=== PATIENT | female | born 2000 | race Caucasian/White ===

== ENCOUNTER 2020-01-15 17:41 | Emergency (ER) | payer OTHER, SELFPAY ==
[2020-01-15 17:54] VITALS: BP 113/65; PULSE 91; RESP 20; TEMP 37.5; O2SAT 100
--- NOTE | 2020-01-15 18:06 | ED.EYEPROB ---
HPI - Eye Problem General Chief complaint: Eye Problems Stated complaint: FB in r/eye Time Seen by Provider: 01/15/20 17:54 Source: patient and RN notes reviewed Mode of arrival: ambulatory Limitations: no limitations History of Present Illness HPI Narrative: Patient presents today complaining of a foreign body sensation to her right eyes since last night. States she was washing her face with a cleanser with beads in it and believes this may be what is in her eye. Mother flushed her eye with copious water last night without relief. Denies vision changes or photophobia. Denies drainage. Reports foreign body sensation to the inner canthus. MD chief complaint: eye pain, eye redness and foreign body Related Data Home Medications Medication Instructions Recorded Confirmed levonorgestrel-ethinyl estrad 1 tablet PO DAILY 01/15/20 01/15/20 [Ebonie (28)] Allergies Allergy/AdvReac Type Severity Reaction Status Date / Time No Known Allergies Allergy Verified 01/15/20 17:56 Review of Systems Review of Systems: Narrative: CONSTITUTIONAL: Denies body aches, fever, chills, or sweats. EYES: Denies visual changes, or discharge.+ Foreign body sensation and redness to the right eye ENT: Denies rhinorrhea, congestion, sore throat, or otalgia. CARDIOVASCULAR: Denies chest pain, palpitations, or edema. RESPIRATORY: Denies cough or dyspnea. GASTROINTESTINAL: Denies abdominal pain, nausea, vomiting, or diarrhea. GENITOURINARY: Denies dysuria or hematuria. SKIN: Denies rash, itching, or wounds. MUSCULOSKELETAL: Denies back pain, joint pain, or myalgia. NEUROLOGIC: Denies headache, numbness, tingling, or weakness. PSYCH: Denies depression or anxiety. PMFSH Comments At time of signature, I have reviewed and agree with nursing past medical, surgical, social and family history unless otherwise noted. Please see nursing chart for further information. There is no relevant family history pertinent to the presenting complaint Exam Narrative: Exam Narrative: GENERAL: Well-appearing, well-nourished, and in no acute distress. HEAD: Normocephalic, atraumatic. EYES: EOMI. PERRLA. Left eye normal. Right eye: Injected conjunctiva. No foreign bodies found. Fluorescein uptake to the 2 o'clock position of the iris, indicating corneal abrasion. Lids and lashes normal bilaterally. ENT: Mucous membranes pink and moist. NECK: Normal AROM. CHEST: No respiratory distress. EXTREMITIES: Normal range of motion. No edema. SKIN: Warm, dry, no rash. NEURO: No focal deficits. Alert and oriented x3. Gait steady. PSYCH: Normal affect. No signs of depression or anxiety. Course Vital Signs Vital signs: Vital Signs Temperature 99.5 F 01/15/20 17:54 Pulse Rate 91 01/15/20 17:54 Respiratory Rate 20 01/15/20 17:54 Blood Pressure 113/65 01/15/20 17:54 Pulse Oximetry 100 01/15/20 17:54 Temperature 99.5 F 01/15/20 17:54 Pulse Rate 91 01/15/20 17:54 Respiratory Rate 20 01/15/20 17:54 Blood Pressure 113/65 01/15/20 17:54 Pulse Oximetry 100 01/15/20 17:54 Reviewed Procedures Other Procedure Procedure 1: Other Procedure: Right eye was anesthetized with 1 drop of tetracaine and anesthesia was achieved. The eye was flushed with eye wash. Lid was inverted and examined. Moistened Qtip was used to sweep underneath the upper eyelid twice with 0 foreign bodies resulting. Cornea was dyed with fluorescein and 1 abrasion was noted at 2 oclock position of the iris. Pt tolerated procedure well. MDM - Eye Problem Differential Diagnosis Differential diagnosis: Likely corneal abrasion, conjunctivitis and other (Foreign body) Critical Care Time Critical Care Time Critical Care Time: No Discharge Plan Discharge Clinical Impression: Abrasion of cornea, right Qualifiers: Encounter type: initial encounter Qualified Code(s): S05.01XA - Injury of conjunctiva and corneal abrasion without foreign body, right eye, ini
== END 2020-01-15 18:12 | disposition home or self-care (01) ==
PROVIDERS: Emergency Provider Nurse Practitioner; PCP Physician Assistant
DX: S05.01XA Injury of conjunctiva and corneal abrasion without foreign body, right eye, initial encounter (principal); X58.XXXA Exposure to other specified factors, initial encounter
CPT/HCPCS: 99213; A9270; G0463

== ENCOUNTER 2022-01-17 13:13 | Emergency (ER) | payer OTHER, SELFPAY ==
[2022-01-17 13:30] VITALS: BP 112/73; PULSE 107; RESP 16; TEMP 37.4; O2SAT 100
--- NOTE | 2022-01-17 13:42 | ED.URI ---
HPI - URI/Sore Throat General Chief Complaint: Upper Respiratory Infection Stated Complaint: cold symptoms Time Seen by Provider: 01/17/22 13:42 Source: patient and RN notes reviewed Mode of arrival: ambulatory Limitations: no limitations History of Present Illness HPI Narrative: 22y/o female presented for c/o sinus congestion, fever, body aches x2 days. Endorses occasional dizziness and one episode of vomiting phlegm today. Denies cough, sob, wheezing. Denies sick contacts. She is not vaccinated for covid/flu. She had covid 10/2021. MD elicited complaint: cough Related Data Home Medications Medication Instructions Recorded Confirmed albuterol 1 mcg INHALATION DIRECTED 01/17/22 01/17/22 fluoxetine [Prozac] 20 mg PO DAILY 01/17/22 01/17/22 levonorgestrel-ethinyl estrad 1 tablet PO DAILY 01/17/22 01/17/22 [Ebonie (28)] Allergies Allergy/AdvReac Type Severity Reaction Status Date / Time No Known Allergies Allergy Verified 01/17/22 13:39 Review of Systems Review of Systems: CONSTITUTIONAL: Endorses malaise, chills, sweats, fever EYES: Denies visual changes, redness, or discharge ENT: Reports rhinorrhea, congestion, sinus pain, otalgia, sore throat CARDIOVASCULAR: Denies chest pain, palpitations, edema RESPIRATORY: Denies dyspnea cough, post nasal drainage. GASTROINTESTINAL: Denies abdominal pain, nausea, vomiting, diarrhea SKIN: Denies rash or itching MUSCULOSKELETAL: Endorses myalgia NEUROLOGIC: Denies headache Exam Narrative: GENERAL: Ill-appearing, nontoxic HEAD: Normocephalic EYES: PERRLA, conjunctivae clear ENT: Mucous membranes moist. TM pearly taylor with dull light reflex bilaterally; no tragal tenderness. Oropharynx erythematous without lesions or exudate, no drooling, no hoarseness, no trismus, uvula midline. NECK: Supple. No lymphadenopathy CHEST: Clear to auscultation, breath sounds equal. No wheezing, rhonchi, rales, or stridor. No respiratory distress, speaks in full sentences. HEART: Regular rate and rhythm. No murmur heard. SKIN: Warm, dry, no rash. NEURO: Alert and oriented x3. PSYCH: Normal mood and affect Course Course Emergency Course: Patient is aware of diagnosis, understands and agrees to treatment plan. Anticipatory guidance given. Patient agrees to follow-up as directed and is aware of reasons to seek care at the emergency department. Portions of this record may have been created with voice recognition software Level of Care: Express Care Visit Vital Signs Vital signs: Vital Signs Temperature 99.3 F 01/17/22 13:30 Pulse Rate 107 H 01/17/22 13:30 Respiratory Rate 16 01/17/22 13:30 Blood Pressure 112/73 01/17/22 13:30 Pulse Oximetry 100 01/17/22 13:30 Temperature 99.3 F 01/17/22 13:30 Pulse Rate 107 H 01/17/22 13:30 Respiratory Rate 16 01/17/22 13:30 Blood Pressure 112/73 01/17/22 13:30 Pulse Oximetry 100 01/17/22 13:30 reviewed MDM - URI/Sore Throat MDM Narrative Medical decision making narrative: flu A positive Pt declines Tamiflu. She is appropriate for outpt treatment and f/u. Differential Diagnosis Differential diagnosis: Likely upper respiratory infection, sinusitis, viral infection, influenza and pharyngitis Lab Data Attestation: I reviewed the patient's lab results. Discharge Plan Discharge Clinical Impression: Influenza Patient Disposition: Home, Self-Care Condition: Stable Instructions: Antibiotic Form, Influenza (ED) Additional Instructions: Recommend Flonase spray and Zyrtec (or Claritin/Danyelle) for sinus congestion over the counter Cough syrup may cause drowsiness; avoid driving or take it at night time. Tylenol 1000mg every 8 hours as needed for pain/fever Symptomatic treatment includes: rest, fluids, and increase humidity of the air at home. Follow up with your primary care provider as needed in 1-2 weeks Go to the ER for worsening symptoms or concerns Prescriptions: No Action levonorgestrel-
== END 2022-01-17 13:52 | disposition home or self-care (01) ==
PROVIDERS: Emergency Provider Nurse Practitioner Family; PCP Physician Assistant
DX: J10.1 Influenza due to other identified influenza virus with other respiratory manifestations (principal)
CPT/HCPCS: 87804; 99213; G0463

== ENCOUNTER 2022-02-25 19:37 | Emergency (ER) | payer OTHER, SELFPAY ==
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
[2022-02-25 19:52] VITALS: BP 112/64; PULSE 97; RESP 18; TEMP 37.4; O2SAT 100
== END 2022-02-25 20:10 | disposition home or self-care (01) ==
PROVIDERS: Emergency Provider Nurse Practitioner; PCP Physician Assistant
DX: S93.601A Unspecified sprain of right foot, initial encounter (principal); V86.99XA Unspecified occupant of other special all-terrain or other off-road motor vehicle injured in nontraffic accident, initial encounter
CPT/HCPCS: 73630; 99213; G0463

== ENCOUNTER 2023-11-21 08:55 | Day surgery (SDC) | payer OTHER, SELFPAY ==
[2023-11-14 11:15] VITALS: BMI 20.5
[2023-11-14 14:09] VITALS: BMI 20.7
[2023-11-21 10:42] VITALS: BP 107/77; PULSE 110; RESP 16; TEMP 36.6; O2SAT 100; BMI 19.8
[2023-11-21] MEDS: LACTATED RINGERS 1,000 ML 150 ML IV CONT (10:57)
--- NOTE | 2023-11-21 10:58 | P.PNAN_ITS ---
Anes - Initial Pre Proc Eval Procedure: Operation Date: 11/21/23 12:00 Proposed Procedures p Esophagogastroduodenoscopy - Dinh Toure MD Date/Time: 11/21/23 10:58 Surgeon: Dinh Toure MD Pre Op Diagnosis: Gerd without esophagitis Patient Data Age: 23 Gender: F Height: 1.6 m Weight: 50.7 kg Last Vital Signs Temp 36.6 C 11/21/23 10:42 Pulse 110 H 11/21/23 10:42 Resp 16 11/21/23 10:42 BP 107/77 11/21/23 10:42 Pulse Ox 100 11/21/23 10:42 O2 Del Method Room Air 11/21/23 10:42 Allergies Allergy/AdvReac Type Severity Reaction Status Date / Time No Known Allergies Allergy Verified 11/21/23 10:39 Home Medications Medication Instructions Recorded Confirmed Type omeprazole 20 mg capsule,delayed 20 mg PO DAILY 30 days #30 caps 09/11/23 11/21/23 Rx release Patient hx anesthesia problems: none Family hx anesthesia problems: none Results Review: All pre-operative results and documents have been reviewed as part of the pre- operative evaluation. [facility] Past Medical History Medical History Depression History of nephrolithiasis X2 Surgical History Surgical History History of myringotomy History of tonsillectomy Family History Family History Father Diabetes mellitus Mother No problems noted. Grandparent Hypertension Diabetes mellitus Skin cancer Alcoholism Brain tumor Social History Social History Smoking status: Never smoker Alcohol intake: current Alcohol use details: socially Substance use: never Substance use type: does not use Lack of Transportation: No Lack of Food: Never True Current Housing: I Have Housing Concerned About Future Housing: No Difficulty Paying Gas/Electric Bills: No Difficulty Paying for Meds: No Currently Unemployed: No Education: High School Diploma/GED Difficulty w/ Childcare or Family Care: No Living arrangements: with family Occupation/Education: occupation Gender identity (if verbalized by the patient): Female Sexual Orientation (if Verbalized by the Patient): Straight or Heterosexual Spiritual care concerns: No Anes - Eval Final PreProcedure Day of Procedure 11/21/23 10:58 Patient weight: normal Heart: regular rate and rhythm Lungs: clear to auscultation and normal air movement Airway: Mallampati scale class II Neurological: alert and oriented Last oral intake: >/= 8 hours ASA classification: II Emergent: no Anesthetic plan: proceed Anesthesia type and monitoring: general GIVS and standard monitoring Results Review: All pre-operative results and documents have been reviewed as part of the pre- operative evaluation. Informed Consent: The patient's anesthetic plan and its attendant risks and benefits were discussed with the patient/family/POA. Questions were solicited and answers provided to the satisfaction of the patient/family/POA.
--- NOTE | 2023-11-21 11:14 | PM.HPGS ---
History of Present Illness History of Present Illness Consent: Risks, benefits, and alternatives have been discussed and questions answered. Patient agrees to proceed with procedure. Chief complaint: Gerd Narrative: Jennifer Zhong is a 23 year old female referred for EGD. Has a history of heartburn in acid reflux. Primarily at night. She will have significant regurgitation with substernal pain. Occasional regurgitation. Symptoms occur at least once a week but often more frequent than this. She was started on omeprazole 20mg p.o. daily but after 1 month symptoms fail to improve. Over the last 2 weeks since increasing dose to b.i.d. symptoms have abated. Patient denies any dysphagia. She has had no bleeding or weight loss. Family history noncontributory. Review of Systems Review of Systems: Systems noncontributory. [facility] Past Medical History Medical History Depression History of nephrolithiasis X2 Surgical History Surgical History History of myringotomy History of tonsillectomy Family History Family History Father Diabetes mellitus Mother No problems noted. Grandparent Hypertension Diabetes mellitus Skin cancer Alcoholism Brain tumor Social History Social History Smoking status: Never smoker Alcohol intake: current Alcohol use details: socially Substance use: never Substance use type: does not use Lack of Transportation: No Lack of Food: Never True Current Housing: I Have Housing Concerned About Future Housing: No Difficulty Paying Gas/Electric Bills: No Difficulty Paying for Meds: No Currently Unemployed: No Education: High School Diploma/GED Difficulty w/ Childcare or Family Care: No Living arrangements: with family Occupation/Education: occupation Gender identity (if verbalized by the patient): Female Sexual Orientation (if Verbalized by the Patient): Straight or Heterosexual Spiritual care concerns: No Meds Home Medications and Allergies Home Medications Medication Instructions Recorded Confirmed Type omeprazole 20 mg capsule,delayed 20 mg PO DAILY 30 days #30 caps 09/11/23 11/21/23 Rx release Allergies Allergy/AdvReac Type Severity Reaction Status Date / Time No Known Allergies Allergy Verified 11/21/23 10:39 Vital Signs Vital Signs - 24 hr 11/21/23 10:42 Temperature 98 F Pulse Rate 110 H Respiratory Rate 16 Blood Pressure 107/77 Pulse Oximetry 100 Oxygen Delivery Room Air Exam Narrative: Physical exam reveals patient to be alert stable. HEENT exam is unremarkable. Patient is anicteric. Lungs are clear to auscultation and to percussion. Heart is without murmur or extra sounds. Abdomen is are present soft nontender with no organomegaly. Digital external rectal exam is normal. Assessment and Plan Assessment and plan (1) GERD (gastroesophageal reflux disease): Code(s): K21.9 - Gastro-esophageal reflux disease without esophagitis Status: Acute Assessment and Plan: Patient with symptoms consistent with acid reflux. She appears to be doing well on omeprazole 40mg daily. Recommend taking a 40mg dose once daily before dinner. Anti reflux measures are encouraged. Elevate head of bed. No late snacks. Avoid caffeine. Further recommendations may be given after endoscopy.
[2023-11-21 11:55] VITALS: BP 98/83; PULSE 88; RESP 14; O2SAT 100
--- NOTE | 2023-11-21 11:58 | WPDANESPN ---
Anes - Prog Note Post-Op Date/Time: 11/21/23 11:58 Cardiovascular status: normal Respiratory status: normal Airway patency: baseline Mental status: baseline Post-Op hydration status: normal Vital Signs: Last Vital Signs Temp 36.6 C 11/21/23 10:42 Pulse 110 H 11/21/23 10:42 Resp 16 11/21/23 10:42 BP 107/77 11/21/23 10:42 Pulse Ox 100 11/21/23 10:42 O2 Del Method Room Air 11/21/23 10:42 Pain Score (VAS): 0 I/O: Intake & Output 11/20/23 11/21/23 11/21/23 23:59 07:59 15:59 Intake Total 100 Balance 100 Post-procedural complaints: none Patient Feedback: Patient satisfied with anesthetic care. Other Findings: Patient vital signs back to baseline. Patient denies nausea and vomiting. Patient's pain under control. Patient OK for discharge.
[2023-11-21 12:05] VITALS: BP 84/56; PULSE 84; RESP 16; O2SAT 100
[2023-11-21 12:15] VITALS: BP 94/68; PULSE 74; RESP 16; O2SAT 100
== END 2023-11-21 12:33 | disposition home or self-care (01) ==
PROVIDERS: PCP Physician Assistant; Visit Provider Internal Medicine Gastroenterology
PROC: 0DJ08ZZ Inspection of Upper Intestinal Tract, Via Natural or Artificial Opening Endoscopic (ICD-10-PCS; CPT 43235; principal; 2023-11-21 12:00)
DX: K21.9 Gastro-esophageal reflux disease without esophagitis (principal); R12 Heartburn
CPT/HCPCS: 43239